=== PATIENT | male | born 1925 | race Caucasian/White ===

== ENCOUNTER 2016-10-17 19:01 | Observation (INO) | payer MEDICARE, MEDICAID ==
[~2016-10-17] VITALS: Ht 172.7 cm; Wt 72.0 kg
[~2016-10-17 19:01] MED LIST: 1-ME1LIQ PO; ALBU6.7H INH; AMMO12CR10 EX; B COTAB3 PO; CETI10 PO; CILO50TA PO; CITA20TA4 PO; FENT25DI TD; NORT25CA PO; OMEP20TA PO; PRAV10 PO; PRESERVISION LUTEIN; PROS5TAB2 PO; RANO500 PO; SENN1TAB11 PO; TAB-TAB PO; VICO10TA PO; [UNRECOGNIZED DRUG - OTHER] LEFT EYE
[2016-10-17 19:04] VITALS: BP 199/82; PULSE 59; RESP 16; TEMP 99.7; O2SAT 95
--- NOTE | 2016-10-17 22:10 | PD ---
HPI Chief Complaint: Abdominal Pain Time Seen by Provider: 22:10 Travel History International Travel<30 days: No Contact w/Intl Traveler<30days: No Traveled to known affect area: No History of Present Illness HPI 89-year-old male came to the emergency room with history of left-sided chest pain and back pain. He is extremely hard of hearing and was getting agitated as I was asking questions and examining him. However upon asking he did point to the left side of his chest saying it was hurting. Patient is not aware of his medical history since he looked confused when I asked him. There is paperwork that came with him from the assisted living facility and he is on Ranexa and Pletal. Patient is hypertensive in the emergency room. [facility] Past Medical History Narrative Medical List of his past medical history as reviewed from the nursing note. Hx Anticoagulant Therapy: Yes Anemia: Yes Arthritis: Yes Asthma: No Autoimmune Disease: No Blood Disorders: No Anxiety: No Depression: No Heart Rhythm Problems: Yes Cancer: No Cardiac Catheterization: No Cardiovascular Problems: Yes High Cholesterol: Yes Chemotherapy: No Chest Pain: No Congestive Heart Failure: Yes COPD: No Cerebrovascular Accident: No Coronary Artery Disease: Yes Diabetes: No Diminished Hearing: Yes Endocrine: No Gastrointestinal Disorders: Yes (peptic ulcers) GERD: Yes Glaucoma: No Genitourinary: No Headaches: No Hepatitis: No Hiatal Hernia: Yes Hypertension: Yes Immune Disorder: No Implanted Vascular Access Dvce: Yes Kidney Stones: No Musculoskeletal: Yes (CHRONIC BACK PAIN) Neurologic: No Psychiatric: Yes Reproductive: Yes Respiratory: Yes Immunizations Current: No Myocardial Infarction: No Radiation Therapy: No Renal Failure: No Seizures: No Sleep Apnea: No Thyroid Disease: No Ulcer: Yes (REPAIRED BLEEDING ULCERS) PNEUMOCCOCAL Vaccine (Year): 2009 Past Surgical History Abdominal Surgery: Yes (LEFT ING. HERNIA) AICD: No Arteriovenous Shunt: No Body Medical Devices: STEEL RUFINA TO LEFT FEMUR Cholecystectomy: Yes Coronary Artery Bypass Graft: No Ear Surgery: No Endocrine Surgery: No Eye Surgery: Yes (03/2009 LEFT EYE CATARACT SURGERY) Genitourinary Surgery: Yes (BLADDER SURG) Gynecologic Surgery: No Insulin Pump: No Joint Replacement: No Neurologic Surgery: Yes (NERVE REPAIR TO RIGHT ARM) Oral Surgery: Yes (T&A A CHILD) Pacemaker: No Tonsillectomy: Yes (& adenoids) Other Surgery: Yes (LEFT ING. HERNIA) Social History Alcohol Use: No Tobacco Use: No Substance Use: No Allergies-Medications (Allergen,Severity, Reaction): Coded Allergies: Aspirin (Verified Allergy, Severe, Bleeding, 10/17/16) Iodine (Verified Allergy, Severe, SWELLING/HIVES, 10/17/16) Shrimp (Verified Allergy, Severe, SHELLFISH/SEAFOOD = SEVERE HIVES, 10/17/16 ) Acyclovir (Verified Allergy, Unknown, 10/17/16) Atenolol (Verified Allergy, Unknown, 10/17/16) Hydrochlorothiazide (Verified Allergy, Unknown, 10/17/16) Simvastatin (Verified Allergy, Unknown, 10/17/16) Comments List of his allergies reviewed from the nursing note. Reported Meds & Prescriptions Reported Meds & Active Scripts Active Reported Ranexa ER 12 HR (Ranolazine) 500 Mg Tab 500 Mg PO DAILY Protonix (Pantoprazole Sodium) 40 Mg Tab 40 Mg PO DAILY Losartan (Losartan Potassium) 100 Mg Tab 100 Mg PO DAILY Klor-Con 10 (Potassium Chloride) 10 Meq Tab 10 Meq PO ONCE Potassium 75 Mg Tab 10 Hydrocodone-Acetaminophen 7.5-325 mg Tab 1 Tab PO Q8HR PRN [place]-3 Fish Oil/Vitamin (Fish Oil-Cholecalciferol) 1,000-1,000 Mg Cap 1 Cap PO DAILY Fentanyl Patch 72 HR (Fentanyl) 25 Mcg/Hr Patch 25 Mcg T-DERMAL Q72H Escitalopram (Escitalopram Oxalate) 10 Mg Tab 10 Mg PO DAILY Colace (Docusate Sodium) 100 Mg Cap 100 Mg PO BID Cilostazol 50 Mg Tab 50 Mg PO BID Senna (Sennosides) 8.6 Mg Cap 8.6 Mg PO HS Phenergan (Promethazine HCl) 25 Mg Tab 25 Mg PO BID Aspirin 325 Mg Tab 325 Mg PO DAILY Vitamin D (Cholecalciferol) 1,000 Unit Tab 1,000 Units PO DAILY Trazodone (Trazodone HCl) 100 Mg Tab 100 Mg PO HS Sucralfate 1 Gm Tab 1 Gm PO TID on empty stomach Simbrinza Opth Drops (Brinzolamide-Brimonidine Opth Drops) 1-0.2% Susp 1 Drop EACH EYE BID Narrative Medication List of his home medications reviewed from the nursing note. Review of Systems Except as stated in HPI: all other systems reviewed are Neg Physical Exam Narrative GENERAL: Awake, alert, elderly and frail, extremely hard of hearing, moderate distress SKIN: Warm and dry. HEAD: Atraumatic. Normocephalic. EYES: Pupils equal and round. No scleral icterus. No injection or drainage. ENT: No nasal bleeding or discharge. Mucous membranes pink and moist. NECK: Trachea midline. No JVD. CARDIOVASCULAR: Irregularly irregular rhythm. No murmur appreciated. RESPIRATORY: No accessory muscle use. Clear to auscultation. Breath sounds equal bilaterally. GASTROINTESTINAL: Abdomen soft, diffusely tender, nondistended. Hepatic and splenic margins not palpable. MUSCULOSKELETAL: No obvious deformities. No clubbing. No cyanosis. No edema. NEUROLOGICAL: Awake and alert. No obvious cranial nerve deficits. Motor grossly within normal limits. Normal speech. PSYCHIATRIC: Anxious; insight and judgment normal. Data Data Last Documented VS Vital Signs Date Time Temp Pulse Resp B/P Pulse Ox O2 Delivery O2 Flow Rate FiO2 10/17/16 22:38 98.7 54 20 181/86 97 10/17/16 22:30 Nasal Cannula 2 Orders Electrocardiogram (10/17/16 ) B-Type Natriuretic Peptide (10/17/16 23:05) Ckmb (Isoenzyme) Profile (10/17/16 23:05) Complete Blood Count With Diff (10/17/16 23:05) Comprehensive Metabolic Panel (10/17/16 23:05) Magnesium (Mg) (10/17/16 23:05) Prothrombin Time / Inr (Pt) (10/17/16 23:05) Act Partial Throm Time (Ptt) (10/17/16 23:05) Troponin I (10/17/16 23:05) Lipase (10/17/16 23:05) Chest, Single Ap (10/17/16 23:05) Ecg Monitoring (10/17/16 23:05) Bilateral Bp Monitoring (10/17/16 23:05) Iv Access Insert/Monitor (10/17/16 23:05) Oximetry (10/17/16 23:05) Oxygen Administration (10/17/16 23:05) Sodium Chloride 0.9% Flush (Ns Flush) (10/17/16 23:15) Sodium Chlorid 0.9% 500 Ml Inj (Ns 500 M (10/17/16 23:15) Urinalysis - C+S If Indicated (10/17/16 23:05) Ct Abd/Pel W/O Iv Contrast (10/17/16 23:05) Morphine Inj (Morphine Inj) (10/17/16 23:15) Ondansetron Inj (Zofran Inj) (10/17/16 23:15) Sodium Chloride 0.9% Flush (Ns Flush) (10/17/16 23:15) Ct Thorax/ Chest Wo Iv Contras (10/17/16 ) Trazodone (Desyrel) (10/18/16 00:15) CKMB (10/17/16 23:25) CKMB% (10/17/16 23:25) Admit Order (Ed Use Only) (10/18/16 01:12) Labs Laboratory Tests Test 10/17/16 10/18/16 23:25 00:55 White Blood Count 7.7 TH/MM3 Red Blood Count 4.46 MIL/MM3 Hemoglobin 12.8 GM/DL Hematocrit 39.0 % Mean Corpuscular Volume 87.5 FL Mean Corpuscular Hemoglobin 28.7 PG Mean Corpuscular Hemoglobin 32.7 % Concent Red Cell Distribution Width 13.6 % Platelet Count 292 TH/MM3 Mean Platelet Volume 8.6 FL Neutrophils (%) (Auto) 66.2 % Lymphocytes (%) (Auto) 24.0 % Monocytes (%) (Auto) 7.3 % Eosinophils (%) (Auto) 1.8 % Basophils (%) (Auto) 0.7 % Neutrophils # (Auto) 5.1 TH/MM3 Lymphocytes # (Auto) 1.9 TH/MM3 Monocytes # (Auto) 0.6 TH/MM3 Eosinophils # (Auto) 0.1 TH/MM3 Basophils # (Auto) 0.1 TH/MM3 CBC Comment DIFF FINAL Differential Comment Prothrombin Time 11.4 SEC Prothromb Time International 1.0 RATIO Ratio Activated Partial 26.7 SEC Thromboplast Time Sodium Level 146 MEQ/L Potassium Level 4.0 MEQ/L Chloride Level 111 MEQ/L Carbon Dioxide Level 27.2 MEQ/L Anion Gap 8 MEQ/L Blood Urea Nitrogen 16 MG/DL Creatinine 1.04 MG/DL Estimat Glomerular Filtration 67 ML/MIN Rate Random Glucose 108 MG/DL Calcium Level 8.7 MG/DL Magnesium Level 2.3 MG/DL Total Bilirubin 0.4 MG/DL Aspartate Amino Transf 10 U/L (AST/SGOT) Alanine Aminotransferase 19 U/L (ALT/SGPT) Alkaline Phosphatase 96 U/L Total Creatine Kinase 127 U/L Creatine Kinase MB 1.9 NG/ML Troponin I 0.02 NG/ML B-Type Natriuretic Peptide 371 PG/ML Total Protein 7.3 GM/DL Albumin 3.4 GM/DL Lipase 373 U/L Urine Color LIGHT-YELLOW Urine Turbidity CLEAR Urine pH 7.0 Urine Specific [place] 1.011 Urine Protein TRACE mg/dL Urine Glucose (UA) NEG mg/dL Urine Ketones NEG mg/dL Urine Occult Blood NEG Urine Nitrite NEG Urine Bilirubin NEG Urine Urobilinogen LESS THAN 2.0 MG/DL Urine Leukocyte Esterase NEG Urine RBC LESS THAN 1 /hpf Urine WBC 1 /hpf Urine Mucus FEW /lpf Microscopic Urinalysis Comment CULT NOT INDICATED MDM Medical Decision Making Medical Screen Exam Complete: Yes Emergency Medical Condition: Yes Medical Record Reviewed: Yes Interpretation(s) Twelve-lead EKG was reviewed by me. Atrial fibrillation, left axis deviation, bradycardia, old inferior [place]. Heart rate of 58 bpm. Differential Diagnosis ACS, non-STEMI, colitis Narrative Course 1:17 AM blood test results and the CAT scan reports a back. Patient is dehydrated with mild hypernatremia and hyperchloremia. I've given him IV fluid bolus. Given his initial chief complain to me being left-sided chest pain and history of heart disease I would like to keep this patient for observation to rule out ACS. I discussed this case with the hospitalist who thought the patient would be appropriate for chest pain center. Patient has been admitted to the chest pain center. Procedures EKG Prior to Arrival: No Diagnosis Primary Impression: Chest pain Qualified Code: R07.9 - Chest pain, unspecified type Admitting Information Admitting Physician Requests: Observation Rick Hernández MD Oct 17, 2016 22:10
[2016-10-17 22:38] VITALS: BP 181/86; PULSE 54; RESP 20; TEMP 98.7; O2SAT 97
[2016-10-17] MEDS ORDERED: ONDANSETRON HCL 4 MG/2 ML VIAL IVP ONE (23:15)
[2016-10-17] MEDS ORDERED: SODIUM CHLORID 0.9% 500 ML INJ 500 ML IV ONE (23:15)
[2016-10-17] MEDS ORDERED: SODIUM CHLORIDE 0.9% FLUSH 5 ML FLUSH IVF PRN ×2 (23:15)
[2016-10-17] MEDS ORDERED: MORPHINE SULFATE 4 MG/ML INJ IV PUSH ONE (23:15)
--- NOTE | 2016-10-17 23:41 | RADRPT ---
EXAM DATE/TIME: 10/17/2016 23:24 [facility] COMPARISON: No previous studies available for comparison. INDICATIONS : Chest pain. MEDICAL HISTORY : None. SURGICAL HISTORY : None. ENCOUNTER: Initial ACUITY: 1 day PAIN SCORE: 6/10 LOCATION: Bilateral chest FINDINGS: 2 portable frontal views of the chest show a linear density involving the right lateral hemithorax on a single projection. This courses off the film and is felt to be artifact. No pneumothorax. Tiny lef t effusion. Heart is at the upper limits of normal in terms of size. Aorta is calcified and mildly to rtuous. No infiltrate. The degenerative and scoliotic spine. CONCLUSION: 1. Tiny left effusion. No infiltrate observed. Yury Nino Jr., MD on October 17, 2016 at 23:37 Board Certified Radiologist. This report was verified electronically.
[2016-10-17 23:55] LABS: AUTOMATED NEUTROPHIL # 5.1 TH/MM3 (1.8-7.7); BASOPHIL # 0.1 TH/MM3 (0-0.2); BASOPHIL % 0.7 % (0.0-2.0); EOSINOPHIL # 0.1 TH/MM3 (0-0.4); EOSINOPHIL % 1.8 % (0.0-4.0); HEMO FLAGS DIFF FINAL; LYMPHOCYTE # 1.9 TH/MM3 (1.0-4.8); MEAN CELL VOLUME 87.5 FL (80.0-100.0); MEAN CORPUSCULAR HEMOGLOBIN 28.7 PG (27.0-34.0); MEAN CORPUSCULAR HGB CONC 32.7 % (32.0-36.0); MONO % 7.3 % (0.0-8.0); NEUT % 66.2 % (16.0-70.0); PLATELET COUNT 292 TH/MM3 (150-450); RED BLOOD COUNT 4.46 MIL/MM3 (4.50-5.90); RED CELL DISTRIBUTION WIDTH 13.6 % (11.6-17.2); WHITE BLOOD COUNT 7.7 TH/MM3 (4.0-11.0)
[2016-10-18 00:15] LABS: ANION GAP 8 MEQ/L (5-15); AST (GOT) 10 U/L (15-37); BICARBONATE 27.2 MEQ/L (21.0-32.0); BLOOD UREA NITROGEN 16 MG/DL (7-18); CHLORIDE 111 MEQ/L (98-107); GLOMERULAR FILTRATION RATE 67 ML/MIN (>89); MAGNESIUM 2.3 MG/DL (1.5-2.5); SODIUM (NA) 146 MEQ/L (136-145)
[2016-10-18] MEDS ORDERED: traZODone HCL 100 MG TAB PO ONE (00:15)
[2016-10-18 00:19] LABS: ALKALINE PHOSPHATASE 96 U/L (45-117); ALT (GPT) 19 U/L (12-78); CREATINE KINASE 127 U/L (39-308); TOTAL BILIRUBIN ADULT 0.4 MG/DL (0.2-1.0)
[2016-10-18 00:32] LABS: CKMB 1.9 NG/ML (0.5-3.6)
[2016-10-18 00:36] LABS: APTT (PATIENT) 26.7 SEC (24.3-30.1); PROTHROMBIN TIME - PATIENT 11.4 SEC (9.8-11.6)
--- NOTE | 2016-10-18 00:47 | RADRPT ---
EXAM DATE/TIME: 10/18/2016 00:19 [facility] COMPARISON: No previous studies available for comparison. INDICATIONS : Abdomen pain with nausea. ORAL CONTRAST: No oral contrast ingested. RADIATION DOSE: 10.38 CTDIvol (mGy) ; Combined studies - Thorax/Abdomen/Pelvis MEDICAL HISTORY : Cardiovascular disease. Hypertension. Hernia, hiatal.GERD SURGICAL HISTORY : Inguinal hernia repair. Cholecystectomy. ENCOUNTER: Initial ACUITY: 1 day PAIN SCALE: 8/10 LOCATION: Bilateral abdomen TECHNIQUE: Volumetric scanning of the abdomen and pelvis was performed. Using automated exposure control and ad justment of the mA and/or kV according to patient size, radiation dose was kept as low as reasonably achievable to obtain optimal diagnostic quality images. FINDINGS: LOWER LUNGS: A tiny right effusion. Bibasilar atelectasis. Heart is mildly enlarged with a small pericardial effus ion. Small hiatal hernia. LIVER: Homogeneous density without lesion. There is no dilation of the biliary tree. The gallbladder is david gically absent. SPLEEN: Normal size without lesion. PANCREAS: Within normal limits. KIDNEYS: Normal in size and shape. There is no stone or hydronephrosis. An exophytic lesion is seen from the posterior midpole the left kidney. Measures 1.5 cm in size. Counseled units are 24. ADRENAL GLANDS: Within normal limits. VASCULAR: There is no aortic aneurysm. Diffuse calcified atherosclerotic plaque. BOWEL/MESENTERY: The stomach, small bowel, and colon demonstrate no acute abnormality. There is no free intraperitone al air or fluid. Scattered colonic diverticuli throughout the colon. No acute inflammation observed. ABDOMINAL WALL: Within normal limits. RETROPERITONEUM: There is no lymphadenopathy. BLADDER: No wall thickening or mass. REPRODUCTIVE: Within normal limits. INGUINAL: There is no lymphadenopathy or hernia. MUSCULOSKELETAL: A degenerative scoliotic spine. Left hip orthopedic hardware. CONCLUSION: 1. No acute abnormality. 2. 1.5 cm nonspecific lesion exophytic from the midpole the left kidney. It is poorly characterize on this unenhanced study. Consider outpatient renal sonography to further evaluate. 3. Prior cholecystectomy. Yury Nino Jr., MD on October 18, 2016 at 0:41 Board Certified Radiologist. This report was verified electronically.
--- NOTE | 2016-10-18 00:51 | RADRPT ---
EXAM DATE/TIME: 10/18/2016 00:19 [facility] COMPARISON: No previous studies available for comparison. INDICATIONS : Shortness of breath today. RADIATION DOSE: 10.38 CTDIvol (mGy) ; Combined studies - Thorax/Abdomen/Pelvis MEDICAL HISTORY : Cardiovascular disease. Hypertension. Hernia, hiatal. GERD SURGICAL HISTORY : Inguinal hernia repair. Cholecystectomy. ENCOUNTER: Initial ACUITY: 1 day PAIN SCALE: 0/10 LOCATION: chest TECHNIQUE: Volumetric scanning of the chest was performed. Using automated exposure control and adjustment of t he mA and/or kV according to patient size, radiation dose was kept as low as reasonably achievable to obtain optimal diagnostic quality images. FINDINGS: LUNGS: No infiltrate or effusion. Scattered areas of atelectasis. A 4 mm pulmonary nodule noted within the r ight upper lobe. PLEURAE: A tiny right effusion. MEDIASTINUM: The heart is moderately enlarged. A small pericardial effusion noted. Coronary artery and aortic athe rosclerotic calcifications. Multiple small anterior mediastinal lymph nodes are noted. The largest me asures 2.3 x 1.5 cm. AXILLAE: Within normal limits. No lymphadenopathy. MUSCULOSKELETAL: Within normal limits for patient age. MISCELLANEOUS: See the CT of the abdomen and pelvis reported separately. CONCLUSION: 1. Cardiomegaly with small pericardial effusion. 2. Tiny right pleural effusion. 3. Noncalcified granuloma right upper lobe. Yury Nino Jr., MD on October 18, 2016 at 0:46 Board Certified Radiologist. This report was verified electronically.
[2016-10-18] MEDS ORDERED: ACETAMINOPHEN 500 MG CPLT PO PRN (01:15)
[2016-10-18] MEDS ORDERED: NITROGLYCERIN 0.4 MG SL 25 TABS/BTL SL PRN (01:15)
[2016-10-18] MEDS ORDERED: ONDANSETRON HCL 4 MG/2 ML VIAL IV PRN (01:15)
[2016-10-18] MEDS ORDERED: SODIUM CHLORIDE 0.9% FLUSH 5 ML FLUSH IVF PRN (01:15)
[2016-10-18 01:24] LABS: BLOOD, URINE NEG (NEG); COMMENT (UR) CULT NOT INDICATED; CULTURE IF INDICATED CULT NOT INDICATED; GLUCOSE,URINE NEG (NEG); KETONE, URINE NEG (NEG); MUCUS URINE FEW /lpf (OCC); NITRITE,URINE NEG (NEG); URINE COLOR LIGHT-YELLOW (YELLW/STRAW)
[2016-10-18] MEDS ORDERED: OMEGCAP PO (01:49)
[2016-10-18] MEDS ORDERED: POTA-243 PO (01:49)
[2016-10-18] MEDS ORDERED: PROM25TA5 PO (01:49)
[2016-10-18] MEDS ORDERED: HYDR-3580 PO (01:49)
[2016-10-18] MEDS ORDERED: SENN8.6C PO (01:49)
[2016-10-18] MEDS ORDERED: TRAZ100T4 PO (01:49)
[2016-10-18] MEDS ORDERED: SUCR1TAB PO (01:49)
[2016-10-18] MEDS ORDERED: PROT40TA PO (01:49)
[2016-10-18] MEDS ORDERED: ESCI10TA PO (01:49)
[2016-10-18] MEDS ORDERED: CILO50TA PO (01:49)
[2016-10-18] MEDS ORDERED: VITA100064 PO (01:49)
[2016-10-18] MEDS ORDERED: POTA75TA (01:49)
[2016-10-18] MEDS ORDERED: ASPI325T PO (01:49)
[2016-10-18] MEDS ORDERED: BRIN1SUS2 EACH EYE (01:49)
[2016-10-18] MEDS ORDERED: RANO500 PO (01:49)
[2016-10-18] MEDS ORDERED: COLA100C3 PO (01:49)
[2016-10-18] MEDS ORDERED: LOSA100T PO (01:49)
[2016-10-18] MEDS ORDERED: FENT25DI T-DERMAL (01:49)
[2016-10-18 02:26] VITALS: O2SAT 96
[2016-10-18 03:37] LABS: CREATINE KINASE 130 U/L (39-308)
[2016-10-18 04:00] VITALS: BP 150/76; PULSE 58; RESP 16; TEMP 97.6; O2SAT 95
[2016-10-18 06:30] VITALS: BP 165/62; PULSE 56; RESP 16; O2SAT 96
[2016-10-18 07:15] VITALS: BP 129/62; PULSE 51; RESP 16; O2SAT 97
[2016-10-18 08:18] VITALS: O2SAT 97
--- NOTE | 2016-10-18 08:27 | HHI.DCPOC ---
Discharge Care Plan Diagnosis: (1) Nausea Goals to Promote Your Health * To prevent worsening of your condition and complications * To maintain your health at the optimal level Directions to Meet Your Goals Take your medications as prescribed Follow your dietary instruction Follow activity as directed Keep your appointments as scheduled Take your immunizations and boosters as scheduled If your symptoms worsen call your PCP, if no PCP go to Urgent Care Center or Emergency Room Smoking is Dangerous to Your Health. Avoid second hand smoke Call the 24-hour hour crisis hotline for domestic abuse at Fadi Delgadillo Oct 18, 2016 08:27
[2016-10-18] MEDS ORDERED: SODIUM CHLORIDE 0.9% FLUSH 5 ML FLUSH IVF SCH (09:00)
--- NOTE | 2016-10-18 11:09 | PD.CONS ---
Provisional Diagnosis Admission Date Oct 18, 2016 at 01:15 [place]. Adjustment disorder with disturbance of conduct History of Present Illness Service Psychiatry Consult Requested By Primary Care Physician [facility] HPI The patient 89-year-old man, without any previous psychiatric history , no previous psychiatric hospitalizations, no previous suicide attempts, who came to the emergency room with history of left-sided chest pain and back pain. He is extremely hard of hearing and was getting agitated as I was asking questions and examining him. However upon asking he did point to the left side of his chest saying it was hurting. A psychiatric consult was requested because the patient allegedly endorse suicidal statement and was agitated before coming to the hospital in his residential facility. A psychiatric evaluation today the patient is calm and cooperative, patient states that they are lying, and at any moment he has voiced that he wanted to . 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 He reports his mood as happy, now he doesn't have any more chest pain, his plan is to go out and enjoy today. 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 Patient denies depressive symptoms, denies anxiety, denies ahmet, denies perceptual disturbances. Patient denies suicidal or homicidal ideation. Patient denies visual and auditory hallucinations. Patient denies previous psychiatric history , he denies alcohol use and drug use. He is fully oriented 3, able to have a coherent, pleasant and logical conversation. No gross cognitive impairment observed this moment. Review of Systems Constitutional: DENIES: Diaphoretic episodes, Fatigue, Fever, Weight gain, Weight loss, Chills, Dizziness, Change in appetite, Night Sweats Endocrine: DENIES: Heat/cold intolerance, Polydipsia, Polyuria, Polyphagia Eyes: DENIES: Blurred vision, Diplopia, Eye inflammation, Eye pain, Vision loss , Photosensitivity, Double Vision Ears, nose, mouth, throat: COMPLAINS OF: Hearing loss, DENIES: Tinnitus, Vertigo, Nasal discharge, Oral lesions, Throat pain, Hoarseness, Ear Pain, Running Nose, Epistaxis, Sinus Pain, Toothache, Odynophagia Respiratory: DENIES: Apneas, Cough, Snoring, Wheezing, Hemoptysis, Sputum production, Shortness of breath Cardiovascular: DENIES: Chest pain, Palpitations, Syncope, Dyspnea on Exertion , PND, Lower Extremity Edema, Orthopnea, Claudication Gastrointestinal: DENIES: Abdominal pain, Black stools, Bloody stools, Constipation, Diarrhea, Nausea, Vomiting, Difficulty Swallowing, Anorexia Musculoskeletal: DENIES: Joint pain, Muscle aches, Stiffness, Joint Swelling, Back pain, Neck pain Integumentary: DENIES: Abnormal pigmentation, Nail changes, Pruritus, Rash Hematologic/lymphatic: COMPLAINS OF: Bruising, Lymphadenopathy Immunologic/allergic: DENIES: Eczema, Urticaria Neurologic: DENIES: Abnormal gait, Headache, Localized weakness, Paresthesias, Seizures, Speech Problems, Tremor, Poor Balance Psychiatric: DENIES: Anxiety, Confusion, Mood changes, Depression, Hallucinations, Agitation, Suicidal Ideation, Homicidal Ideation, Delusions Past Family Social History Coded Allergies: Aspirin (Verified Allergy, Severe, Bleeding, 10/17/16) Iodine (Verified Allergy, Severe, SWELLING/HIVES, 10/17/16) Shrimp (Verified Allergy, Severe, SHELLFISH/SEAFOOD = SEVERE HIVES, 10/17/16 ) Acyclovir (Verified Allergy, Unknown, 10/17/16) Atenolol (Verified Allergy, Unknown, 10/17/16) Hydrochlorothiazide (Verified Allergy, Unknown, 10/17/16) Simvastatin (Verified Allergy, Unknown, 10/17/16) Reported Medications Ranolazine ER 12 HR (Ranexa ER 12 HR)500 Mg [id number] Mg PO DAILY #60 TAB Ref 0 10/18/16 Pantoprazole (Protonix)40 Mg Tab40 Mg PO DAILY #30 TAB Ref 0 10/18/16 Losartan 100 Mg [id number] Mg PO DAILY #30 TAB Ref 0 10/18/16 Potassium Chloride ER (Klor-Con 10)10 Meq Tab10 Meq PO ONCE #1 TAB Ref 0 10/18/16 Potassium 75 Mg Tab10 10/18/16 Hydrocodone-Acetaminophen 7.5-325 mg Tab1 Tab PO Q8HR PRN (PAIN) #30 TAB Ref 0 10/18/16 Fish Oil-Cholecalciferol ([place]-3 Fish Oil/Vitamin)1,000-1,000 Mg Cap1 Cap PO DAILY Ref 0 10/18/16 Fentanyl Patch 72 HR 25 Mcg/Hr Patch25 Mcg T-DERMAL Q72H #10 PATCH Ref 0 10/18/16 Escitalopram 10 Mg Tab10 Mg PO DAILY #30 TAB Ref 0 10/18/16 Docusate Sodium (Colace)100 Mg [id number] Mg PO BID #60 CAP Ref 0 10/18/16 Cilostazol 50 Mg Tab50 Mg PO BID Ref 0 10/18/16 Sennosides (Senna)8.6 Mg Cap8.6 Mg PO HS Ref 0 10/18/16 Promethazine (Phenergan)25 Mg Tab25 Mg PO BID #1 TAB Ref 0 10/18/16 Aspirin 325 Mg [id number] Mg PO DAILY #30 TAB Ref 0 10/18/16 Cholecalciferol (Vitamin D)1,000 Unit Tab1,000 Units PO DAILY #1 BOTTLE Ref 0 10/18/16 Trazodone 100 Mg [id number] Mg PO HS #30 TAB Ref 0 10/18/16 Sucralfate 1 Gm Tab1 Gm PO TID #90 TAB Ref 0 on empty stomach 10/18/16 Brinzolamide-Brimonidine Opth Drops (Simbrinza Opth Drops)1-0.2% Susp1 Drop EACH EYE BID #1 BOTTLE Ref 0 10/18/16 Current Medications Medications (Trade) Dose Ordered Sig/Angelito Route Start Time Stop Time Status Last Admin (NS Flush) 2 ml UNSCH PRN IVF 10/17/16 23:15 10/18/16 00:03 (NS Flush) 2 ml UNSCH PRN IVF 10/17/16 23:15 (NS Flush) 2 ml UNSCH PRN IVF 10/18/16 01:15 (NS Flush) 2 ml BID IVF 10/18/16 09:00 (Tylenol) 500 mg Q4H PRN PO 10/18/16 01:15 (Zofran Inj) 4 mg Q6H PRN IV 10/18/16 01:15 (Nitrostat Sl) 0.4 mg Q5M PRN SL 10/18/16 01:15 10/18/16 06:36 Family History He denies Social History Patient was born and raised in [place], he has been living in [place] for over 30 years, he is single, domiciled in a residential facility, he has 2 kids with poor contact with them, 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 Physical Exam Vital Signs Vital Signs Date Time Temp Pulse Resp B/P Pulse Ox O2 Delivery O2 Flow Rate FiO2 10/18/16 08:18 97 Nasal Cannula 2.00 10/18/16 07:15 51 16 129/62 10/18/16 04:00 97.6 Mental Status Examination Appearance man, poor hygiene, age appearing, calm and cooperative Speech: Unremarkable Orientation: x3 Memory: Unremarkable Thought Process: Logical Thought Content: Unremarkable Hallucination Type: None Suicidal Ideation: No Homicidal Ideation: No Previous Homicide Attempts: No Judgement: WNL Affect: Good Mood: Appropriate Motor Activity: Normal gait Assessment & Plan Problem List: (1) Adjustment disorder with mixed disturbance of emotions and conduct Assessment & Plan: On psychiatric evaluation today the patient doesn't have any evident subjective or objective signs or symptoms of depression, anxiety, ahmet, psychosis. Patient denies suicidal or homicidal ideation, he denies visual and auditory hallucinations. During this evaluation no gross cognitive impairment are observed or reported. Patient is fully oriented and 3, able to have a logical, coherent, and pleasant conversation and provide meaningful information for the psychiatric assessment. No paranoia, delusions, aggressive behavior or agitation could be elicited during this evaluation. Actually, he was proper, calm and cooperative. Patient doesn't present any psychiatric symptomatology that requires an immediate psychiatric intervention at this moment. He does not meet criteria for psychiatric admission. There is no psychiatric contraindication to discharging this patient back to his residential facility. Extensive support, motivation psychoeducation provide. ICD Code: F43.25 Assessment & Plan Estimated LOS: Andi Huerta MD Oct 18, 2016 11:09
--- NOTE | 2016-10-18 12:38 | MH ---
cc: SAMI CHRISTIANSON MD DATE OF ADMISSION: 10/18/2016 DATE OF 1925 CHIEF COMPLAINT Abdominal pain. HISTORY OF PRESENT ILLNESS This is an 89-year-old male who presents to the ED and when asked what brings him to the hospital, he states, "I am ready to go home." When asked what brought him to the hospital, again he then states I am having pain here, then points to his abdomen. He states he has been having it all the time for two months. He states that he was evaluated at the hospital and has seen his primary care doctor also where he was evaluated. He does not really know what they found. He states it still bothers him. He has had no recent vomiting, no diarrhea, no blood in the stool. [facility] but never mentioned chest discomfort and he was asked several times and did not discuss any chest discomfort. PAST MEDICAL HISTORY 1. Hypertension. 2. Hyperlipidemia. 3. BPH. 4. Gastroesophageal reflux disease. 5. Chronic back pain. 6. Peripheral vascular disease. He denies diabetes and denies any knowledge of any coronary disease. FAMILY HISTORY He is not aware of his family history. SURGICAL HISTORY 1. He has had multiple skin grafts secondary to luu. 2. Inguinal hernia repair. 3. A claudia to his left femur. 4. Cataract surgery. 5. Bladder surgery. 6. Tonsillectomy. ALLERGIES When asked if he had any allergies, he said no, but listed include - ASPIRIN. IODINE. SHRIMP. ACYCLOVIR. ATENOLOL. HYDROCHLOROTHIAZIDE. SIMVASTATIN. MEDICATION LIST The patient really does not know what his medications are, but a list was provided by the graduate teaching assistant at the facility that he resides at and include - 1. Eye drops. 2. Losartan. 3. Lexapro. 4. Trazodone. 5. Ranexa. 6. Colace. 7. Senna. 8. Aspirin. 9. Fentanyl patch. 10. Hydrocodone. 11. Fish oil. 12. Phenergan. 13. Pletal. 14. Sucralfate. 15. Protonix. 16. Potassium. 17. Vitamin D. REVIEW OF SYSTEMS General: Denies fevers or chills. Denies recent illnesses. HEENT: Denies headache, earache or sore throat, difficulty swallowing. Cardiovascular: Denies discomfort to his chest. Denies diaphoresis. Denies sensation of heart beating rapidly or irregularly. Denies syncope. Respiratory: Denies shortness breath or inspirational chest comfort. He has not been coughing. GI: Complains of nausea and abdominal pain. His main complaint is nausea at this time that has since resolved since he has been in the ER. He denies diarrhea, constipation, blood in the stool. Musculoskeletal: Chronic back pain. Denies calf pain or swelling. Neurovascular: Denies headache or dizziness. Endocrine: Denies by polyuria or polydipsia. Hematologic: Denies bruising. Skin: Denies rash or itching. PHYSICAL EXAMINATION Vital Signs: In emergency department initially included a blood pressure of 181/86, heart rate was 54, respiratory rate 20, pulse oximetry 97% on room air and he was afebrile. Most recent vital signs include a blood pressure of 129/60, heart rate 51, respirations 16, pulse oximetry 97% on 2 liters nasal cannula. General: The patient seen in the examination room in no apparent distress. He is pleasant. He speaks in clear and complete sentences. HEENT: Head is atraumatic, normocephalic. Neck: Supple without lymphadenopathy and trachea is midline. No JVD or carotid bruits. Cardiovascular: Regular rate and rhythm without gallop or rub. There is grade 2 systolic murmur at the left sternal border. Respiratory: Lungs clear to auscultation bilaterally. No wheezing, rales or rhonchi. No reproducible chest wall discomfort. No use of accessory muscles. GI: Abdomen nontender when he is distracted. Abdomen is soft. Normal bowel sounds in all quadrants. No guarding or rebound. Musculoskeletal: Patient moving upper and lower extremities freely. No joint tenderness or edema. No calf tenderness or edema. No Homans' sign. Strong pulses in upper and lower extremities. Neurovascular: The patient is alert and oriented. Cranial nerves II through XII are grossly intact. No focal deficits and speech is clear. Skin: No rash and turgor is normal. LABORATORY DATA CBC is unremarkable. Coagulation studies are unremarkable. Complete metabolic panel essentially is unremarkable. BNP is mildly elevated at 371. Serial cardiac enzymes are normal x 3. Lipase is normal at 373. X-RAYS Single view chest x-ray read by radiologist as tiny left effusion. No infiltrate observed. CT OF ABDOMEN AND PELVIS 1. Obtained in the ER and read by the radiologist as no acute abnormality. 2. A 1.5-cm nonspecific lesion exophytic from the mid-pole of the left kidney, poorly characterized on this unenhanced study. Consider outpatient renal sonography to further evaluate. 3. Prior cholecystectomy. CT CHEST Without IV contrast is read by radiologist as - 1. Cardiomegaly, small pericardial effusion. 2. Tiny right pleural effusion. 3. Noncalcified granuloma right upper lobe. EKGs Sinus rhythm, sinus bradycardia without significant ST-segment depression or elevation. ASSESSMENT 1. Nausea: The patient has had issues with abdominal pain for months, this has been evaluated in the past. There will be no further workup. He seen by Dr. Sami Christianson of Cardiology in [facility]. The patient denies chest pain. He has had normal cardiac enzymes. Again, no further cardiac workup at this time. The patient will be discharged home as symptoms have fully resided. 2. As the patient was discharged, the nurse brought to my attention that the [facility] was refusing him to come back to their facility. It seems that he had made threats to harm himself. However, the did not mention this to us. A consult was made to Psychiatry and Dr. Andi Eaton was gracious enough to see the patient and cleared him from the psychiatric standpoint and the patient will be discharged as prior plan to the [facility]. 3. Hypertension: Continue current medication. 4. Chronic back pain: Continue current medication. 5. Hyperlipidemia: Continue current medications. 6. PVD: Continue current medication. 7. Abdominal pain: This has been chronic and he is to follow up with his doctor for this. The patient is stable at this time. He is agreeable to this plan. Dictated by: Orlin Delgadillo PA-C MD MANOJ Fuentes/LUCERO /11:38 AM 12:37 PM
--- NOTE | 2016-10-18 13:12 | EKG ---
Date Performed: 10/18/2016 Time Performed: 07:21:50 PTAGE: 89 years EKG: SINUS BRADYCARDIA MARKED LEFT AXIS DEVIATION LEFT VENTRICULAR HYPERTROPHY AND ST-T CHANGE P OSSIBLE ANTERIOR MYOCARDIAL INFARCTION ABNORMAL ECG PREVIOUS TRACING : 10/18/2016 04.08 Since previous tracing, no significant change noted DOCTOR: Olu La Interpretating Date/Time 10/18/2016 13:12:02
--- NOTE | 2016-10-18 13:16 | EKG ---
Date Performed: 10/18/2016 Time Performed: 02:53:54 PTAGE: 89 years EKG: Sinus rhythm WITH OCCASIONAL VENTRICULAR PREMATURE COMPLEXES MODERATE VOLTAGE CRITERIA FOR LVH, CONSIDER NORMAL V ARIANT POSSIBLE ANTERIOR MYOCARDIAL INFARCTION ABNORMAL ECG PREVIOUS TRACING : 01/05/2012 11.35 Since previous tracing, no significant change noted DOCTOR: Olu La Interpretating Date/Time 10/18/2016 13:14:43
--- NOTE | 2016-10-18 13:16 | EKG ---
Date Performed: 10/18/2016 Time Performed: 04:08:55 PTAGE: 89 years EKG: SINUS BRADYCARDIA POSSIBLE ANTERIOR MYOCARDIAL INFARCTION ABNORMAL ECG PREVIOUS TRACING : 10/18/2016 02.53 Since previous tracing, no significant change noted DOCTOR: Olu La Interpretating Date/Time 10/18/2016 13:14:28
--- NOTE | 2016-10-18 13:18 | EKG ---
Date Performed: 10/17/2016 Time Performed: 22:40:16 PTAGE: 89 years EKG: NORMAL Sinus rhythm WITH PVC'S NONSPECIFIC T-WAVE ABNORMALITY ABNORMAL RHYTHM ECG NO PREVIOUS TRACING DOCTOR: Olu La Interpretating Date/Time 10/18/2016 13:17:57
== END 2016-10-18 12:14 | disposition home or self-care (01) ==
LOC: NEPE 19:01 → INTOOBSV 10-18 01:15 → NEDA 10-18 01:15 → NEDH 10-18 06:18
PROVIDERS: ADMIT Internal Medicine Interventional Cardiology; ATTEND Internal Medicine Interventional Cardiology
DX: R07.9 Chest pain, unspecified (principal); I10 Essential (primary) hypertension; Z79.01 Long term (current) use of anticoagulants; D64.9 Anemia, unspecified; E78.00 Pure hypercholesterolemia, unspecified; I50.9 Heart failure, unspecified; I25.10 Atherosclerotic heart disease of native coronary artery without angina pectoris; Z87.11 Personal history of peptic ulcer disease; K21.9 Gastro-esophageal reflux disease without esophagitis; K44.9 Diaphragmatic hernia without obstruction or gangrene; Z79.899 Other long term (current) drug therapy; F43.25 Adjustment disorder with mixed disturbance of emotions and conduct; E78.5 Hyperlipidemia, unspecified; R11.0 Nausea; R10.9 Unspecified abdominal pain
CPT/HCPCS: 71010; 71250; 74176; 80053; 81001; 82550; 82552; 83690; 83735; 83880; 84484; 85025; 85610; 85730; 93005; 96361; 96374; 96375; 99285; G0378; J2270; J2405; J7040

== ENCOUNTER 2016-10-25 20:09 | Emergency (ER) | payer MEDICARE, OTHER ==
[~2016-10-25] VITALS: Ht 172.7 cm; Wt 65.0 kg
[~2016-10-25 20:09] MED LIST changes: -1-ME1LIQ PO; -ALBU6.7H INH; -AMMO12CR10 EX; +ASPI325T PO; -B COTAB3 PO; +BRIN1SUS2 EACH EYE; -CETI10 PO; -CITA20TA4 PO; +COLA100C3 PO; +ESCI10TA PO; +FENT25DI T-DERMAL; -FENT25DI TD; +HYDR-3580 PO; +LOSA100T PO; -NORT25CA PO; +OMEGCAP PO; -OMEP20TA PO; +POTA-243 PO; +POTA75TA; -PRAV10 PO; -PRESERVISION LUTEIN; +PROM25TA5 PO; -PROS5TAB2 PO; +PROT40TA PO; -SENN1TAB11 PO; +SENN8.6C PO; +SUCR1TAB PO; -TAB-TAB PO; +TRAZ100T4 PO; -VICO10TA PO; +VITA100064 PO; -[UNRECOGNIZED DRUG - OTHER] LEFT EYE
[2016-10-25 20:32] VITALS: BP 205/96; PULSE 85; RESP 16; TEMP 98.2; O2SAT 98
[2016-10-25] MEDS ORDERED: SODIUM CHLOR 0.9% 1000 ML INJ 1,000 ML IV SCH (20:44)
[2016-10-25] MEDS ORDERED: SODIUM CHLORIDE 0.9% FLUSH 5 ML FLUSH IVF PRN (20:45)
[2016-10-25] MEDS ORDERED: MORPHINE SULFATE 4 MG/ML INJ IV PUSH ONE (20:45)
--- NOTE | 2016-10-25 20:48 | PD ---
HPI Chief Complaint: Psychiatric Symptoms Time Seen by Provider: 20:36 Travel History International Travel<30 days: No Contact w/Intl Traveler<30days: No Traveled to known affect area: No History of Present Illness HPI Patient is an 89-year-old male presents emergency Department with left lower quadrant abdominal pain for the past 2 months. Patient states is also been having some nausea without diarrhea constipation or vomiting. He lives in an assisted living facility and told his nurse that he was having belly pain. During the course of him complaining to the nurse about his belly pain he made a comment that he was going to kill himself because of belly pain. Nurse apparently called law enforcement replacement Criss merritt to transfer to the emergency department. When I ask him if he is going to kill himself he says "hello". He states that "I don't want anybody else to kill me either." PFSH Past Medical History Hx Anticoagulant Therapy: Yes Anemia: Yes Arthritis: Yes Asthma: No Autoimmune Disease: No Blood Disorders: No Anxiety: No Depression: No Heart Rhythm Problems: Yes Cancer: No Cardiac Catheterization: No Cardiovascular Problems: Yes High Cholesterol: Yes Chemotherapy: No Chest Pain: No Congestive Heart Failure: Yes COPD: No Cerebrovascular Accident: No Coronary Artery Disease: Yes Diabetes: No Diminished Hearing: Yes Endocrine: No Gastrointestinal Disorders: Yes (peptic ulcers) GERD: Yes Glaucoma: No Genitourinary: No Headaches: No Hepatitis: No Hiatal Hernia: Yes Hypertension: Yes Immune Disorder: No Implanted Vascular Access Dvce: Yes Kidney Stones: No Medical other: Yes (RUANO CATH) Musculoskeletal: Yes (CHRONIC BACK PAIN) Neurologic: No Psychiatric: Yes Reproductive: Yes Respiratory: Yes Immunizations Current: No Myocardial Infarction: No Radiation Therapy: No Renal Failure: No Seizures: No Sleep Apnea: No Thyroid Disease: No Ulcer: Yes (REPAIRED BLEEDING ULCERS) Tetanus Vaccination: > 5 Years Influenza Vaccination: No PNEUMOCCOCAL Vaccine (Year): 2009 Past Surgical History Abdominal Surgery: Yes (LEFT ING. HERNIA) AICD: No Arteriovenous Shunt: No Body Medical Devices: STEEL RUFINA TO LEFT FEMUR Cholecystectomy: Yes Coronary Artery Bypass Graft: No Ear Surgery: No Endocrine Surgery: No Eye Surgery: Yes (03/2009 LEFT EYE CATARACT SURGERY) Genitourinary Surgery: Yes (BLADDER SURG) Gynecologic Surgery: No Insulin Pump: No Joint Replacement: No Neurologic Surgery: Yes (NERVE REPAIR TO RIGHT ARM) Oral Surgery: Yes (T&A A CHILD) Pacemaker: No Tonsillectomy: Yes (& adenoids) Other Surgery: Yes (LEFT ING. HERNIA) Social History Alcohol Use: No Tobacco Use: No Substance Use: No Allergies-Medications (Allergen,Severity, Reaction): Coded Allergies: Aspirin (Verified Allergy, Severe, Bleeding, 10/26/16) Iodine (Verified Allergy, Severe, SWELLING/HIVES, 10/26/16) Shrimp (Verified Allergy, Severe, SHELLFISH/SEAFOOD = SEVERE HIVES, ) Acyclovir (Verified Allergy, Unknown, 10/26/16) Atenolol (Verified Allergy, Unknown, 10/26/16) Hydrochlorothiazide (Verified Allergy, Unknown, 10/26/16) Simvastatin (Verified Allergy, Unknown, 10/26/16) Reported Meds & Prescriptions Reported Meds & Active Scripts Active [place] (Hydrocodone-Acetaminophen) 5-325 mg Tab 1 Tab PO Q6H PRN Zofran Odt (Ondansetron Odt) 4 Mg Tab 4 Mg SL Q6HR PRN Reported Flagyl (Metronidazole) 250 Mg Tab 250 Mg PO TID Levaquin (Levofloxacin) 250 Mg Tab 250 Mg PO DAILY [Lidocaine Oin 5%] 1 Appl TOPICAL DAILY Ocusoft Lid Scrub (Eyelid Cleansers) 1 Pad Pad 1 Pad EACH EYE BID Ranexa ER 12 HR (Ranolazine) 500 Mg Tab 500 Mg PO DAILY Protonix (Pantoprazole Sodium) 40 Mg Tab 40 Mg PO DAILY Losartan (Losartan Potassium) 100 Mg Tab 100 Mg PO DAILY Klor-Con 10 (Potassium Chloride) 10 Meq Tab 10 Meq PO ONCE Hydrocodone-Acetaminophen 7.5-325 mg Tab 1 Tab PO Q8HR PRN [place]-3 Fish Oil/Vitamin (Fish Oil-Cholecalciferol) 1,000-1,000 Mg Cap 1 Cap PO DAILY Fentanyl Patch 72 HR (Fentanyl) 25 Mcg/Hr Patch 25 Mcg T-DERMAL Q72H Escitalopram (Escitalopram Oxalate) 10 Mg Tab 10 Mg PO DAILY Colace (Docusate Sodium) 100 Mg Cap 100 Mg PO BID Cilostazol 50 Mg Tab 50 Mg PO BID Senna (Sennosides) 8.6 Mg Cap 8.6 Mg PO HS Phenergan (Promethazine HCl) 25 Mg Tab 25 Mg PO BID Aspirin 325 Mg Tab 325 Mg PO DAILY Vitamin D (Cholecalciferol) 1,000 Unit Tab 1,000 Units PO DAILY Trazodone (Trazodone HCl) 100 Mg Tab 100 Mg PO HS Sucralfate 1 Gm Tab 1 Gm PO TID on empty stomach Simbrinza Opth Drops (Brinzolamide-Brimonidine Opth Drops) 1-0.2% Susp 1 Drop EACH EYE BID Review of Systems Except as stated in HPI: all other systems reviewed are Neg Physical Exam Narrative GENERAL: Well-developed well-nourished no apparent distress SKIN: Warm and dry. HEAD: Atraumatic. Normocephalic. EYES: Pupils equal and round. No scleral icterus. No injection or drainage. ENT: No nasal bleeding or discharge. Mucous membranes pink and moist. NECK: Trachea midline. No JVD. CARDIOVASCULAR: Regular rate and rhythm. No murmur appreciated. RESPIRATORY: No accessory muscle use. Clear to auscultation. Breath sounds equal bilaterally. GASTROINTESTINAL: Abdomen soft, non-tender, nondistended. Hepatic and splenic margins not palpable. MUSCULOSKELETAL: No obvious deformities. No clubbing. No cyanosis. No edema. NEUROLOGICAL: Awake and alert oriented 3. No obvious cranial nerve deficits. Motor grossly within normal limits. Normal speech. PSYCHIATRIC: Appropriate mood and affect; insight and judgment normal. Data Data Last Documented VS Vital Signs Date Time Temp Pulse Resp B/P Pulse Ox O2 Delivery O2 Flow Rate FiO2 10/25/16 21:52 76 16 162/84 100 Room Air 10/25/16 20:32 98.2 Orders Complete Blood Count With Diff (10/25/16 20:44) Comprehensive Metabolic Panel (10/25/16 20:44) Lipase (10/25/16 20:44) Urinalysis - C+S If Indicated (10/25/16 20:44) Iv Access Insert/Monitor (10/25/16 20:44) Ecg Monitoring (10/25/16 20:44) Oximetry (10/25/16 20:44) Morphine Inj (Morphine Inj) (10/25/16 20:45) Sodium Chlor 0.9% 1000 Ml Inj (Ns 1000 M (10/25/16 20:44) Sodium Chloride 0.9% Flush (Ns Flush) (10/25/16 20:45) Electrocardiogram (10/25/16 20:44) Ondansetron Inj (Zofran Inj) (10/25/16 21:15) Ct Abd/Pel W/O Iv Contrast (10/25/16 20:44) Diphenhydramine (Benadryl) (10/25/16 22:00) Labs Laboratory Tests Test 10/25/16 10/25/16 20:53 21:35 White Blood Count 11.9 TH/MM3 Red Blood Count 4.45 MIL/MM3 Hemoglobin 12.4 GM/DL Hematocrit 37.4 % Mean Corpuscular Volume 83.9 FL Mean Corpuscular Hemoglobin 27.8 PG Mean Corpuscular Hemoglobin 33.1 % Concent Red Cell Distribution Width 13.6 % Platelet Count 211 TH/MM3 Mean Platelet Volume 9.7 FL Neutrophils (%) (Auto) 78.6 % Lymphocytes (%) (Auto) 13.4 % Monocytes (%) (Auto) 4.6 % Eosinophils (%) (Auto) 2.4 % Basophils (%) (Auto) 1.0 % Neutrophils # (Auto) 9.3 TH/MM3 Lymphocytes # (Auto) 1.6 TH/MM3 Monocytes # (Auto) 0.5 TH/MM3 Eosinophils # (Auto) 0.3 TH/MM3 Basophils # (Auto) 0.1 TH/MM3 CBC Comment AUTO DIFF Differential Comment AUTO DIFF CONFIRMED Platelet Estimate NORMAL Platelet Morphology Comment NORMAL Acanthocytes OCC Sodium Level 141 MEQ/L Potassium Level 4.0 MEQ/L Chloride Level 109 MEQ/L Carbon Dioxide Level 23.4 MEQ/L Anion Gap 9 MEQ/L Blood Urea Nitrogen 19 MG/DL Creatinine 1.24 MG/DL Estimat Glomerular Filtration 55 ML/MIN Rate Random Glucose 113 MG/DL Calcium Level 8.5 MG/DL Total Bilirubin 0.3 MG/DL Aspartate Amino Transf 12 U/L (AST/SGOT) Alanine Aminotransferase 13 U/L (ALT/SGPT) Alkaline Phosphatase 102 U/L Total Protein 7.6 GM/DL Albumin 3.4 GM/DL Lipase 432 U/L Urine Color LIGHT-YELLOW Urine Turbidity CLEAR Urine pH 6.5 Urine Specific [place] 1.009 Urine Protein TRACE mg/dL Urine Glucose (UA) NEG mg/dL Urine Ketones NEG mg/dL Urine Occult Blood NEG Urine Nitrite NEG Urine Bilirubin NEG Urine Urobilinogen LESS THAN 2.0 MG/DL Urine Leukocyte Esterase NEG Urine WBC 1 /hpf Microscopic Urinalysis Comment CULT NOT INDICATED MDM Medical Decision Making Medical Screen Exam Complete: Yes Emergency Medical Condition: Yes Interpretation(s) EKG shows normal sinus rhythm with left axis deviation normal R-wave progression. No concerning ST T changes. This is an abnormal EKG. Differential Diagnosis Colitis, diverticulitis, sepsis unlikely, abdominal pain, chronic abdominal pain. Narrative Course Patient after my initial exam assessment is clearly not a threat to himself. His Kahn act has been lifted. Nursing did speak to the patient's son and states that he uses this language to get attention while he is in the assisted living facility. Apparently he was on significant Vicodin scripts prior to going to assisted living and this is been mostly taken away from him. He does have a history of recurrent diverticulitis and colitis. His CT examination does show colitis here today. Otherwise his labs are reassuring. He is stable for discharge. Diagnosis Primary Impression: Colitis Additional Instructions: Patient states that he just needed something for nausea tonight, if he can get nausea medicine he probably wouldn't have even come into the emergency department. I have added Zofran as a prescription. Please also have him see the facility physician as soon as possible. I have added something for pain as well. I have deemed him not to be a threat to himself currently. Med/Other Pt SpecificInfo: Prescription(s) given Scripts Hydrocodone-Acetaminophen ([place])5-325 mg Tab1 Tab PO Q6H PRN (PAIN) #15 TAB Ref 0 Prov:Segundo Diaz MD 10/25/16 Ondansetron Odt (Zofran Odt)4 Mg Tab4 Mg SL Q6HR PRN (Nausea/Vomiting) #30 TAB Ref 0 Prov:Segundo Diaz MD 10/25/16 Disposition: 01 DISCHARGE HOME Condition: Stable Segundo Diaz MD Oct 25, 2016 20:48
[2016-10-25 20:57] VITALS: RESP 20; O2SAT 98
[2016-10-25] MEDS ORDERED: ONDANSETRON HCL 4 MG/2 ML VIAL IV PUSH ONE (21:15)
[2016-10-25 21:26] LABS: AUTOMATED NEUTROPHIL # 9.3 TH/MM3 (1.8-7.7); BASOPHIL # 0.1 TH/MM3 (0-0.2); EOSINOPHIL # 0.3 TH/MM3 (0-0.4); EOSINOPHIL % 2.4 % (0.0-4.0); HEMATOCRIT 37.4 % (39.0-51.0); LYMPH % 13.4 % (9.0-44.0); LYMPHOCYTE # 1.6 TH/MM3 (1.0-4.8); MEAN CELL VOLUME 83.9 FL (80.0-100.0); MEAN CORPUSCULAR HEMOGLOBIN 27.8 PG (27.0-34.0); MEAN CORPUSCULAR HGB CONC 33.1 % (32.0-36.0); MONO % 4.6 % (0.0-8.0); NEUT % 78.6 % (16.0-70.0); PLATELET COUNT 211 TH/MM3 (150-450); RED BLOOD COUNT 4.45 MIL/MM3 (4.50-5.90); RED CELL DISTRIBUTION WIDTH 13.6 % (11.6-17.2); WHITE BLOOD COUNT 11.9 TH/MM3 (4.0-11.0)
--- NOTE | 2016-10-25 21:35 | RADRPT ---
EXAM DATE/TIME: 10/25/2016 21:12 [facility] COMPARISON: CT ABDOMEN & PELVIS W/O CONTRAST, October 18, 2016, 0:19. INDICATIONS : Diffuse abdominal pain. ORAL CONTRAST: No oral contrast ingested. RADIATION DOSE: 8.44 CTDIvol (mGy) MEDICAL HISTORY : Congestive hearrt failure. Hypertension. Gastroesophageal reflux disease.Gastric ulcers. SURGICAL HISTORY : Inguinal hernia repair. Cholecystectomy.Penile implant. ENCOUNTER: Initial ACUITY: 1 day PAIN SCALE: 10/10 LOCATION: Abdomen. TECHNIQUE: Volumetric scanning of the abdomen and pelvis was performed. Using automated exposure control and ad justment of the mA and/or kV according to patient size, radiation dose was kept as low as reasonably achievable to obtain optimal diagnostic quality images. FINDINGS: LOWER LUNGS: The visualized lower lungs are clear. LIVER: Homogeneous density without lesion. There is no dilation of the biliary tree. No calcified gallston es. SPLEEN: Normal size without lesion. PANCREAS: Within normal limits. KIDNEYS: Normal in size and shape. There is no mass, stone, or hydronephrosis. Small exophytic lesion on the upper pole left kidney posteriorly is unchanged. ADRENAL GLANDS: Within normal limits. VASCULAR: There is no aortic aneurysm. Extensive atherosclerotic changes. BOWEL/MESENTERY: Scattered diverticulosis. There is some wall thickening in the descending colon.. There is no free i ntraperitoneal air or fluid. ABDOMINAL WALL: Within normal limits. RETROPERITONEUM: There is no lymphadenopathy. BLADDER: No wall thickening or mass. REPRODUCTIVE: Within normal limits. INGUINAL: There is no lymphadenopathy or hernia. MUSCULOSKELETAL: Within normal limits for patient age. CONCLUSION: 1. There is wall thickening and some minimal inflammatory changes of the descending colon likely repr esenting colitis. 2. Diverticulosis of the colon without definite diverticulitis. 3. Indeterminate lesion along the left kidney is stable. However further followup is recommended Mike Gzuman MD on October 25, 2016 at 21:26 Board Certified Radiologist. This report was verified electronically.
[2016-10-25 21:52] VITALS: BP 162/84; PULSE 76; RESP 16; O2SAT 100
[2016-10-25] MEDS ORDERED: diphenhydrAMINE HCL 25 MG CAP PO ONE (22:00)
[2016-10-25 22:01] LABS: ACANTHOCYTES OCC (NORMAL); HEMO FLAGS AUTO DIFF; PLATELET ESTIMATE SMEAR NORMAL (NORMAL); PLATELET MORPHOLOGY NORMAL (NORMAL); SCAN/DIFF AUTO DIFF CONFIRMED
[2016-10-25 22:18] LABS: ALKALINE PHOSPHATASE 102 U/L (45-117); ALT (GPT) 13 U/L (12-78); ANION GAP 9 MEQ/L (5-15); AST (GOT) 12 U/L (15-37); BICARBONATE 23.4 MEQ/L (21.0-32.0); BLOOD UREA NITROGEN 19 MG/DL (7-18); CHLORIDE 109 MEQ/L (98-107); GLOMERULAR FILTRATION RATE 55 ML/MIN (>89); SODIUM (NA) 141 MEQ/L (136-145); TOTAL BILIRUBIN ADULT 0.3 MG/DL (0.2-1.0)
[2016-10-25 22:20] LABS: BLOOD, URINE NEG (NEG); GLUCOSE,URINE NEG (NEG); KETONE, URINE NEG (NEG); NITRITE,URINE NEG (NEG); PH, URINE 6.5 (5.0-8.5); URINE COLOR LIGHT-YELLOW (YELLW/STRAW)
[2016-10-25] MEDS ORDERED: OCUSPAD EACH EYE (22:21)
[2016-10-25] MEDS ORDERED: [UNRECOGNIZED DRUG - OTHER] TOPICAL (22:22)
[2016-10-25 22:33] LABS: COMMENT (UR) CULT NOT INDICATED; CULTURE IF INDICATED CULT NOT INDICATED
[2016-10-25] MEDS ORDERED: NORC5TAB PO (22:41)
[2016-10-25] MEDS ORDERED: ZOFR4TAB3 SL (22:41)
[2016-10-26] MEDS ORDERED: METR250 PO (05:31)
[2016-10-26] MEDS ORDERED: LEVA250T PO (05:31)
[2016-10-26] MEDS ORDERED: LIDO5%T TOPICAL (09:51)
--- NOTE | 2016-10-26 12:15 | EKG ---
Date Performed: 10/25/2016 Time Performed: 21:04:16 PTAGE: 89 years EKG: Sinus rhythm POSSIBLE LEFT VENTRICULAR HYPERTROPHY WITH REPOLARIZATION CHANGES POOR R WAVE PROGRESSION Compared t o previous tracing, patient is no longer bradycardic. ABNORMAL ECG PREVIOUS TRACING : 10/18/2016 07.21 DOCTOR: Jimi Monroy Interpretating Date/Time 10/26/2016 12:14:54
== END 2016-10-26 06:06 | disposition home or self-care (01) ==
LOC: NEPA 20:09 → NEPC 10-26 06:06
DX: K52.9 Noninfective gastroenteritis and colitis, unspecified (principal); R11.0 Nausea; R94.31 Abnormal electrocardiogram [ECG] [EKG]; D64.9 Anemia, unspecified; E78.00 Pure hypercholesterolemia, unspecified; I50.9 Heart failure, unspecified; I10 Essential (primary) hypertension; Z79.01 Long term (current) use of anticoagulants
CPT/HCPCS: 74176; 80053; 81001; 83690; 85025; 93005; 96374; 96375; 99284; J2270; J2405; 85610; 85730

== ENCOUNTER 2016-10-26 02:44 | Emergency (ER) | payer MEDICARE, OTHER ==
[~2016-10-26] VITALS: Ht 172.7 cm; Wt 75.0 kg
[~2016-10-26 02:44] MED LIST changes: +NORC5TAB PO; +OCUSPAD EACH EYE; +ZOFR4TAB3 SL; +[UNRECOGNIZED DRUG - OTHER] TOPICAL
[2016-10-26 02:50] VITALS: BP 147/78; PULSE 72; RESP 19; TEMP 97.5; O2SAT 95
[2016-10-26] MEDS ORDERED: ACETAMINOPHEN/HYDROcodone 325 MG/5 MG TAB PO ONE (04:15)
[2016-10-26] MEDS ORDERED: ONDANSETRON ODT 4 MG TAB PO ONE ×2 (04:15→08:30)
[2016-10-26 04:30] VITALS: BP 172/82; PULSE 60; RESP 16; TEMP 98.8; O2SAT 96
[2016-10-26] MEDS ORDERED: LEVA250T PO (05:31)
[2016-10-26] MEDS ORDERED: METR250 PO (05:31)
--- NOTE | 2016-10-26 05:58 | RADRPT ---
EXAM DATE/TIME: 10/26/2016 05:42 [facility] COMPARISON: No previous studies available for comparison. INDICATIONS : Altered mental status. RADIATION DOSE: 37.93 CTDIvol (mGy) MEDICAL HISTORY : Congestive hearrt failure. Hypertension. SURGICAL HISTORY : Tonsillectomy. Left cataract surgery. ENCOUNTER: Initial ACUITY: 1 day PAIN SCALE: 0/10 LOCATION: cranial TECHNIQUE: Multiple contiguous axial images were obtained of the head. Using automated exposure control and adj ustment of the mA and/or kV according to patient size, radiation dose was kept as low as reasonably a chievable to obtain optimal diagnostic quality images. FINDINGS: CEREBRUM: Scattered areas of low attenuation throughout the white matter. The ventricles are normal for age. N o evidence of midline shift, mass lesion, hemorrhage or acute infarction. No extra-axial fluid colle ctions are seen. POSTERIOR FOSSA: The cerebellum and brainstem are intact. The 4th ventricle is midline. The cerebellopontine angle i s unremarkable. EXTRACRANIAL: The visualized portion of the orbits is intact. SKULL: The calvaria is intact. No evidence of skull fracture. CONCLUSION: 1. Nonspecific white matter changes. 2. No acute intracranial abnormality. Miek Guzman MD on October 26, 2016 at 5:56 Board Certified Radiologist. This report was verified electronically.
--- NOTE | 2016-10-26 06:14 | PD ---
HPI Chief Complaint: Abdominal Pain Time Seen by Provider: 03:45 Travel History International Travel<30 days: No Contact w/Intl Traveler<30days: No Traveled to known affect area: No History of Present Illness HPI Patient is an 89-year-old male presents the emergency department for the second time today. Patient was initially brought to me earlier please see my earlier note was worked up diagnosed with colitis and went home. He does live in an assisted living facility. On arrival back to his house patient called 911 because he was unable to get his pain medicine. EMS transported him here. On my initial evaluation now he is oriented to self only, he does not remember seeing me her being here earlier. He understands nothing about his recent diagnosis of colitis nor his history of chronic colitis. PFSH Past Medical History Hx Anticoagulant Therapy: Yes Anemia: Yes Arthritis: Yes Asthma: No Autoimmune Disease: No Blood Disorders: No Anxiety: No Depression: No Heart Rhythm Problems: Yes Cancer: No Cardiac Catheterization: No Cardiovascular Problems: Yes High Cholesterol: Yes Chemotherapy: No Chest Pain: No Congestive Heart Failure: Yes COPD: No Cerebrovascular Accident: No Coronary Artery Disease: Yes Diabetes: No Diminished Hearing: Yes Endocrine: No Gastrointestinal Disorders: Yes (peptic ulcers) GERD: Yes Glaucoma: No Genitourinary: No Headaches: No Hepatitis: No Hiatal Hernia: Yes Hypertension: Yes Immune Disorder: No Implanted Vascular Access Dvce: Yes Kidney Stones: No Musculoskeletal: Yes (CHRONIC BACK PAIN) Neurologic: No Psychiatric: Yes Reproductive: Yes Respiratory: Yes Immunizations Current: No Myocardial Infarction: No Radiation Therapy: No Renal Failure: No Seizures: No Sleep Apnea: No Thyroid Disease: No Ulcer: Yes (REPAIRED BLEEDING ULCERS) PNEUMOCCOCAL Vaccine (Year): 2009 Past Surgical History Abdominal Surgery: Yes (LEFT ING. HERNIA) AICD: No Arteriovenous Shunt: No Body Medical Devices: STEEL RUFINA TO LEFT FEMUR Cholecystectomy: Yes Coronary Artery Bypass Graft: No Ear Surgery: No Endocrine Surgery: No Eye Surgery: Yes (03/2009 LEFT EYE CATARACT SURGERY) Genitourinary Surgery: Yes (BLADDER SURG) Gynecologic Surgery: No Insulin Pump: No Joint Replacement: No Neurologic Surgery: Yes (NERVE REPAIR TO RIGHT ARM) Oral Surgery: Yes (T&A A CHILD) Pacemaker: No Tonsillectomy: Yes (& adenoids) Other Surgery: Yes (LEFT ING. HERNIA) Social History Alcohol Use: No Tobacco Use: No Substance Use: No Allergies-Medications (Allergen,Severity, Reaction): Coded Allergies: Aspirin (Verified Allergy, Severe, Bleeding, 10/26/16) Iodine (Verified Allergy, Severe, SWELLING/HIVES, 10/26/16) Shrimp (Verified Allergy, Severe, SHELLFISH/SEAFOOD = SEVERE HIVES, ) Acyclovir (Verified Allergy, Unknown, 10/26/16) Atenolol (Verified Allergy, Unknown, 10/26/16) Hydrochlorothiazide (Verified Allergy, Unknown, 10/26/16) Simvastatin (Verified Allergy, Unknown, 10/26/16) Reported Meds & Prescriptions Reported Meds & Active Scripts Active [place] (Hydrocodone-Acetaminophen) 5-325 mg Tab 1 Tab PO Q6H PRN Zofran Odt (Ondansetron Odt) 4 Mg Tab 4 Mg SL Q6HR PRN Reported Flagyl (Metronidazole) 250 Mg Tab 250 Mg PO TID Levaquin (Levofloxacin) 250 Mg Tab 250 Mg PO DAILY [Lidocaine Oin 5%] 1 Appl TOPICAL DAILY Ocusoft Lid Scrub (Eyelid Cleansers) 1 Pad Pad 1 Pad EACH EYE BID Ranexa ER 12 HR (Ranolazine) 500 Mg Tab 500 Mg PO DAILY Protonix (Pantoprazole Sodium) 40 Mg Tab 40 Mg PO DAILY Losartan (Losartan Potassium) 100 Mg Tab 100 Mg PO DAILY Klor-Con 10 (Potassium Chloride) 10 Meq Tab 10 Meq PO ONCE Hydrocodone-Acetaminophen 7.5-325 mg Tab 1 Tab PO Q8HR PRN [place]-3 Fish Oil/Vitamin (Fish Oil-Cholecalciferol) 1,000-1,000 Mg Cap 1 Cap PO DAILY Fentanyl Patch 72 HR (Fentanyl) 25 Mcg/Hr Patch 25 Mcg T-DERMAL Q72H Escitalopram (Escitalopram Oxalate) 10 Mg Tab 10 Mg PO DAILY Colace (Docusate Sodium) 100 Mg Cap 100 Mg PO BID Cilostazol 50 Mg Tab 50 Mg PO BID Senna (Sennosides) 8.6 Mg Cap 8.6 Mg PO HS Phenergan (Promethazine HCl) 25 Mg Tab 25 Mg PO BID Aspirin 325 Mg Tab 325 Mg PO DAILY Vitamin D (Cholecalciferol) 1,000 Unit Tab 1,000 Units PO DAILY Trazodone (Trazodone HCl) 100 Mg Tab 100 Mg PO HS Sucralfate 1 Gm Tab 1 Gm PO TID on empty stomach Simbrinza Opth Drops (Brinzolamide-Brimonidine Opth Drops) 1-0.2% Susp 1 Drop EACH EYE BID Review of Systems Except as stated in HPI: all other systems reviewed are Neg Physical Exam Narrative GENERAL: Well-developed well-nourished, ambulates with a cane in no apparent distress. SKIN: Warm and dry. HEAD: Atraumatic. Normocephalic. EYES: Pupils equal and round. No scleral icterus. No injection or drainage. ENT: No nasal bleeding or discharge. Mucous membranes pink and moist. NECK: Trachea midline. No JVD. CARDIOVASCULAR: Regular rate and rhythm. No murmur appreciated. RESPIRATORY: No accessory muscle use. Clear to auscultation. Breath sounds equal bilaterally. GASTROINTESTINAL: Abdomen soft, non-tender, nondistended. Hepatic and splenic margins not palpable. MUSCULOSKELETAL: No obvious deformities. No clubbing. No cyanosis. No edema. NEUROLOGICAL: Awake and alert, oriented to self only. He states January. He is not oriented to situation. No obvious cranial nerve deficits. Motor grossly within normal limits. Normal speech. PSYCHIATRIC: Appropriate mood and affect; insight and judgment normal. Data Data Last Documented VS Vital Signs Date Time Temp Pulse Resp B/P Pulse Ox O2 Delivery O2 Flow Rate FiO2 10/26/16 04:30 98.8 60 16 172/82 96 Room Air Orders Acetamin-Hydrocod 325-5 Mg ([place] 5-325 (10/26/16 04:15) Ondansetron Odt (Zofran Odt) (10/26/16 04:15) Ct Brain W/O Iv Contrast(Rout) (10/26/16 ) Psych Screen (10/26/16 04:50) MDM Medical Decision Making Medical Screen Exam Complete: Yes Emergency Medical Condition: Yes Differential Diagnosis Dementia, delirium, sundowning syndrome, poor social circumstance. Narrative Course Patient was roomed in emergency department, he is already had a complete workup for his abdominal pain today and his abdomen remains benign here. His vital signs are reassuring. He was giving pain medicine as well as nausea medicine. At this time I do believe he is greatly disabled and I have reinstated his Kahn act. Psych screening has been ordered and I discussed with the psych screener's. Patient may need muffling more than an upgrade of his CUSTODIAL. If cleared by psychiatry may need case management consult for upgrade. He is medically stable for psychiatric disposition at this time. Diagnosis Primary Impression: Altered mental status Qualified Code: R41.82 - Altered mental status, unspecified altered mental status type Condition: Stable Segundo Diaz MD Oct 26, 2016 06:14
[2016-10-26 07:44] VITALS: BP 132/90; PULSE 74; RESP 16; O2SAT 95
[2016-10-26] MEDS ORDERED: LIDO5%T TOPICAL (09:51)
[2016-10-26] MEDS ORDERED: ACETAMINOPHEN 500 MG CPLT PO ONE (10:15)
[2016-10-26] MEDS ORDERED: PROMETHAZINE INJ 25 MG/ML VIAL IM ONE (10:45)
[2016-10-26 13:56] VITALS: BP 145/67; PULSE 71; RESP 16; O2SAT 97
[2016-10-26] MEDS ORDERED: ONDANSETRON ODT 4 MG TAB PO PRN (14:00)
[2016-10-26] MEDS ORDERED: PROMETHAZINE HCL 25 MG TAB PO PRN (14:00)
--- NOTE | 2016-10-26 14:20 | PD ---
History of Present Illness Chief Complaint: Abdominal Pain Time Seen by Provider: 14:00 Travel History International Travel<30 Days: No Contact w/Intl Traveler<30days: No Known affected area: No Legal Status Legal Status: Kahn Act History of Present Illness: History of Present Illness Patient is an 89-year-old male with history of depression and anxiety who presents to the emergency department for the second time today. He was seen earlier in the day with complaints of stomach pain and was discharged home. Upon returning home he called 911 because he was unable to obtain his pain medication.He presented in a disoriented manner and was BA by Ed physician due to concerns for his ability to care for himself. He had been BA earlier for suicidal thoughts. The patient is seen in main ed. Awake , alert and engaging. O to person, knows he is in the hospital and is partially oriented to time. " The 7 of the month. It's 2016 we just finished 2015. His speech is clear. there is no indication that he is experiencing any hallucinations, no delusions and no paranoia. He denies any suicidal or homicidal ideation and states " I don't know how those rumors started. I think it was the visiting nurse, Ana. I did tell her that I would rather dies instead of having so much pain." He is denying any intent of harming himself. He does not present and I cannot elicit any symptoms of depression. Telephone call to sonDavid. at [phone]. As per the son the patient has been on pain medication for over 40 years and recently the medication is being reduced. Since the medication reduction the patient has had at least 10 visits to the Ed for complaints of pain. The son has already made plans to have his [place] where he will have more interaction with other peers but this will happen in 2 weeks. The son has no concerns regarding his father's safety or suicidality and states. He has taken all knifes out of the apartment just as a precautionary measure. " My father has been saying these things for a long time in order to get what he wants". He is concerned that his father may in fact be having increase in pain due to reduction of his pain medication. [facility] Past Medical History Hx Anticoagulant Therapy: Yes Anemia: Yes Arthritis: Yes Asthma: No Autoimmune Disease: No Blood Disorders: No Anxiety: No Depression: No Heart Rhythm Problems: Yes Cancer: No Cardiac Catheterization: No Cardiovascular Problems: Yes High Cholesterol: Yes Chemotherapy: No Chest Pain: No Congestive Heart Failure: Yes COPD: No Cerebrovascular Accident: No Coronary Artery Disease: Yes Diabetes: No Diminished Hearing: Yes Endocrine: No Gastrointestinal Disorders: Yes (peptic ulcers) GERD: Yes Glaucoma: No Genitourinary: No Headaches: No Hepatitis: No Hiatal Hernia: Yes Hypertension: Yes Immune Disorder: No Implanted Vascular Access Dvce: Yes Kidney Stones: No Musculoskeletal: Yes (CHRONIC BACK PAIN) Neurologic: No Psychiatric: Yes Reproductive: Yes Respiratory: Yes Immunizations Current: No Myocardial Infarction: No Radiation Therapy: No Renal Failure: No Seizures: No Sleep Apnea: No Thyroid Disease: No Ulcer: Yes (REPAIRED BLEEDING ULCERS) PNEUMOCCOCAL Vaccine (Year): 2009 Past Surgical History Abdominal Surgery: Yes (LEFT ING. HERNIA) AICD: No Arteriovenous Shunt: No Body Medical Devices: STEEL RUFINA TO LEFT FEMUR Cholecystectomy: Yes Coronary Artery Bypass Graft: No Ear Surgery: No Endocrine Surgery: No Eye Surgery: Yes (03/2009 LEFT EYE CATARACT SURGERY) Genitourinary Surgery: Yes (BLADDER SURG) Gynecologic Surgery: No Insulin Pump: No Joint Replacement: No Neurologic Surgery: Yes (NERVE REPAIR TO RIGHT ARM) Oral Surgery: Yes (T&A A CHILD) Pacemaker: No Tonsillectomy: Yes (& adenoids) Other Surgery: Yes (LEFT ING. HERNIA) Psychiatric History Psychiatric History Hx Psychiatric Treatment: Has been receiving antidepressant medication for many years. History of Inpatient Treatment: No Guns or firearms in home: No Social History Born in [place]. x 30 years. lives in own apartment in [facility]. Has one son. 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 Hx Alcohol Use: No Hx Tobacco Use: No Hx Substance Use: No Hx of Substance Use Treatment: No Family Psychiatric History Negative Allergies-Medications (Allergen,Severity, Reaction): Coded Allergies: Aspirin (Verified Allergy, Severe, Bleeding, 10/26/16) Iodine (Verified Allergy, Severe, SWELLING/HIVES, 10/26/16) Shrimp (Verified Allergy, Severe, SHELLFISH/SEAFOOD = SEVERE HIVES, ) Acyclovir (Verified Allergy, Unknown, 10/26/16) Atenolol (Verified Allergy, Unknown, 10/26/16) Hydrochlorothiazide (Verified Allergy, Unknown, 10/26/16) Simvastatin (Verified Allergy, Unknown, 10/26/16) Reported Meds & Prescriptions Reported Meds & Active Scripts Active [place] (Hydrocodone-Acetaminophen) 5-325 mg Tab 1 Tab PO Q6H PRN Zofran Odt (Ondansetron Odt) 4 Mg Tab 4 Mg SL Q6HR PRN Reported Lidocaine Topical (Lidocaine HCl) 5 % Oint 1 Applic TOPICAL DAILY Flagyl (Metronidazole) 250 Mg Tab 250 Mg PO TID Levaquin (Levofloxacin) 250 Mg Tab 250 Mg PO DAILY Ocusoft Lid Scrub (Eyelid Cleansers) 1 Pad Pad 1 Pad EACH EYE BID Ranexa ER 12 HR (Ranolazine) 500 Mg Tab 500 Mg PO DAILY Protonix (Pantoprazole Sodium) 40 Mg Tab 40 Mg PO DAILY Losartan (Losartan Potassium) 100 Mg Tab 100 Mg PO DAILY Klor-Con 10 (Potassium Chloride) 10 Meq Tab 10 Meq PO ONCE Hydrocodone-Acetaminophen 7.5-325 mg Tab 1 Tab PO Q8HR PRN [place]-3 Fish Oil/Vitamin (Fish Oil-Cholecalciferol) 1,000-1,000 Mg Cap 1 Cap PO DAILY Fentanyl Patch 72 HR (Fentanyl) 25 Mcg/Hr Patch 25 Mcg T-DERMAL Q72H Escitalopram (Escitalopram Oxalate) 10 Mg Tab 10 Mg PO DAILY Colace (Docusate Sodium) 100 Mg Cap 100 Mg PO BID Cilostazol 50 Mg Tab 50 Mg PO BID Senna (Sennosides) 8.6 Mg Cap 8.6 Mg PO HS Phenergan (Promethazine HCl) 25 Mg Tab 25 Mg PO BID Aspirin 325 Mg Tab 325 Mg PO DAILY Vitamin D (Cholecalciferol) 1,000 Unit Tab 1,000 Units PO DAILY Trazodone (Trazodone HCl) 100 Mg Tab 100 Mg PO HS Sucralfate 1 Gm Tab 1 Gm PO TID on empty stomach Simbrinza Opth Drops (Brinzolamide-Brimonidine Opth Drops) 1-0.2% Susp 1 Drop EACH EYE BID Review of Systems Constitutional: DENIES: Diaphoretic episodes, Fatigue, Fever, Weight gain, Weight loss, Chills, Dizziness, Change in appetite, Night Sweats Endocrine: DENIES: Heat/cold intolerance, Polydipsia, Polyuria, Polyphagia Eyes: COMPLAINS OF: Vision loss Ears, nose, mouth, throat: COMPLAINS OF: Hearing loss (Wears hearing aides) Respiratory: DENIES: Apneas, Cough, Snoring, Wheezing, Hemoptysis, Sputum production, Shortness of breath Cardiovascular: DENIES: Chest pain, Palpitations, Syncope, Dyspnea on Exertion , PND, Lower Extremity Edema, Orthopnea, Claudication Gastrointestinal: COMPLAINS OF: Abdominal pain, Nausea Genitourinary: DENIES: Sexual dysfunction, Urinary frequency, Urinary incontinence, Urgency, Hematuria, Dysuria, Nocturia, Penile Discharge, Testicular Pain, Testicular Swelling Musculoskeletal: COMPLAINS OF: Muscle aches Integumentary: DENIES: Abnormal pigmentation, Nail changes, Pruritus, Rash Hematologic/lymphatic: DENIES: Bruising, Lymphadenopathy Immunologic/allergic: DENIES: Eczema, Urticaria Neurologic: DENIES: Abnormal gait, Headache, Localized weakness, Paresthesias, Seizures, Speech Problems, Tremor, Poor Balance Exam Alert: Yes [place]: Person, Place, Date (partial) Mood: Anxious Affect: Euthymic Speech: Clear, Logical Eye Contact: Normal Memory Intact: Comment (mild impairment) Hallucinations: Other (neagtive) Delusions: No Suicidal: Ideation (denies) Homicidal: Ideation (denies any) Insight/Judgement poor. Poor MDM Medical Decision Making Medical Record Reviewed: Yes Assessment/Plan 89 year old male with history f anxiety and depression who is under a BA for altered mental status. The patient presented x 2 in 24 hour period to ED for complaints of stomach problems. Patient was confused and was BA At this time the patient does not meet criteria for BA and does not present criteria for increased level of care such as inpatient psychiatric unit. Cleared for discharge by psychiatry. Does not meet BA criteria. Son has arranged for fo patient to move [place] a [place] [facility] in 2 weeks. He also has a follow up with a GI on Sunday. Orders Acetamin-Hydrocod 325-5 Mg ([place] 5-325 (10/26/16 04:15) Ondansetron Odt (Zofran Odt) (10/26/16 04:15) Ct Brain W/O Iv Contrast(Rout) (10/26/16 ) Psych Screen (10/26/16 04:50) Ondansetron Odt (Zofran Odt) (10/26/16 08:30) Diet Regular Basic (10/26/16 Breakfast) Diet Regular Basic (10/26/16 Lunch) Acetaminophen (Tylenol) (10/26/16 10:15) Promethazine Inj (Phenergan Inj) (10/26/16 10:45) Promethazine (Phenergan) (10/26/16 14:00) Ondansetron Odt (Zofran Odt) (10/26/16 14:00) Results Vital Signs Date Time Temp Pulse Resp B/P Pulse Ox O2 Delivery O2 Flow Rate FiO2 10/26/16 13:56 71 16 145/67 97 Room Air 10/26/16 07:44 74 16 132/90 95 Room Air 10/26/16 04:30 98.8 60 16 172/82 96 Room Air 10/26/16 02:59 19 10/26/16 02:50 97.5 72 19 147/78 95 Diagnosis Primary Impression: Generalized anxiety disorder Ruled Out: Altered mental status Psychiatrically Cleared: Yes Condition: Stable Felecia Frost Oct 26, 2016 14:20
== END 2016-10-26 16:34 ==
LOC: NEPC 02:44
DX: Z79.01 Long term (current) use of anticoagulants (principal); E78.00 Pure hypercholesterolemia, unspecified; I50.9 Heart failure, unspecified; I10 Essential (primary) hypertension
CPT/HCPCS: 70450; 96372; 99285; J2550